=== PATIENT | male | born 1995 | race Caucasian/White ===

== ENCOUNTER 2017-08-07 03:34 | Emergency (ER) | payer BC ==
[2017-08-07] MEDS ORDERED: LIDOCAINE/EPINEPHR/TETRACAINE 5 ML BOTTLE TOPICAL ONE (03:44)
[2017-08-07] MEDS ORDERED: AMOXIC-POT CLAV 875MG STARTER 2 EACH TABLET PO STA (03:46)
[2017-08-07 03:50] VITALS: RESP 18
--- NOTE | 2017-08-07 04:05 | ED ---
Animal Bite HPI - General Chief Complaint: Animal Bite Stated Complaint: Dog bite/lip laceration Time Seen by Provider: 08/07/17 03:43 Source: patient, RN notes reviewed, old records reviewed Mode of arrival: ambulatory Limitations: no limitations - History of Present Illness Initial Comments: 22-year-old male presents to the emergency department she complained of lip laceration, he reports he was bit by his friends dog. Patient reports that the dog was a Labrador retriever, was playing an accident we came up on his face and bit him. Patient reports that his lip is split over the right upper lip.They reported the dog is up-to-date on all the taxis. Patient reports that his tetanus shot is up-to-date. Denies any allergies to medications. - Related Data Previous Rx's Medication Instructions Recorded Amoxic-Pot Clav 875-125Mg 1 tab PO Q12HR #20 tablet 08/07/17 [Augmentin 875-125] Allergies Allergy/AdvReac Type Severity Reaction Status Date / Time No Known Allergies Allergy Verified 08/07/17 03:50 Review of Systems ROS Statement: Those systems with pertinent positive or pertinent negative responses have been documented in the HPI. ROS Other: All systems not noted in ROS Statement are negative. Past Medical History Past Medical History: No Reported History History of Any Multi-Drug Resistant Organisms: None Reported Past Surgical History: Hernia Repair Past Psychological History: Depression Smoking Status: Never smoker Past Alcohol Use History: None Reported Past Drug Use History: None Reported General Exam - General Exam Comments Initial Comments: 22 year old male, no distress Limitations: no limitations General appearance: alert, in no apparent distress Head exam: Present: atraumatic, normocephalic, normal inspection Eye exam: Present: normal appearance, PERRL, EOMI. Absent: scleral icterus, conjunctival injection, periorbital swelling ENT exam: Present: normal exam, mucous membranes moist, other (2cm lip laceration over right upper lip through [place] border. ). Absent: normal oropharynx Neck exam: Present: normal inspection. Absent: tenderness, meningismus, lymphadenopathy Respiratory exam: Present: normal lung sounds bilaterally. Absent: respiratory distress, wheezes, rales, rhonchi, stridor Cardiovascular Exam: Present: regular rate, normal rhythm, normal heart sounds. Absent: systolic murmur, diastolic murmur, rubs, gallop, clicks GI/Abdominal exam: Present: soft, normal bowel sounds. Absent: distended, tenderness, guarding, rebound, rigid Extremities exam: Present: normal inspection, full ROM, normal capillary refill. Absent: tenderness, pedal edema, joint swelling, calf tenderness Back exam: Present: normal inspection Neurological exam: Present: alert, oriented X3, CN II-XII intact Psychiatric exam: Present: normal affect, normal mood Course Vital Signs 08/07/17 08/07/17 03:48 04:44 Temperature 97.2 F L 98 F Pulse Rate 82 78 Respiratory 18 18 Rate Blood Pressure 128/66 122/75 O2 Sat by Pulse 97 97 Oximetry Procedures - Laceration Laceration #1 Indication: laceration Site: lip (jose mig[place] border) Size (cm): 2 Description: linear Depth: simple, single layer Anesthetic Used: lidocaine 1% Anesthesia Technique: local infiltration (3) Pre-repair: wound explored, irrigated extensively Type of Sutures: nylon, vicryl Size of Sutures: 5-0, 6-0 Number of Sutures: 7 Technique: simple, interrupted Patient Tolerated Procedure: well, no complications Medical Decision Making - Medical Decision Making 22-year-old male presents to the laceration, he was bit by his friends dog. Through the [place] [employer] commercials approximately 2 cm, is not through and through. Patient one was irrigated with Saline and Betadine. Well approximated enclosed with approximately seven sutures. Discussed getting the surgery removing approximately seven days. Discussed monitoring for infection, I'll put the patient on Augmentin. Return parameters were discussed. Disposition Clinical Impression: Dog bite of vermil[place] of upper lip Disposition: HOME SELF-CARE Condition: Good Instructions: Animal Bite (ED) Additional Instructions: Please return to the emergency room in 7 days to have sutures removed. Please leave wound covered for the first 24-48 hours and then leave open to air after that time. Please use clean soap and water to clean the suture area to prevent scabbing over the top of your sutures. Please watch for any signs of infection which may include but not limited to increased pain, swelling, redness, fever or chills. Please return to the emergency room if any signs of infection do occur. Please return to the emergency room for any other concerns or complications. Prescriptions: Amoxic-Pot Clav 875-125Mg [Augmentin 875-125] 1 tab PO Q12HR #20 tablet Referrals: None,Stated [Primary Care Provider] - 1-2 days Lizbet Rivera MD [STAFF PHYSICIAN] - 1-2 days Time of Disposition: 04:04
[2017-08-07 04:44] VITALS: BP 122/75; PULSE 78; TEMP 98
== END 2017-08-07 04:44 | disposition home or self-care (01) ==
LOC: EC 03:34
DX: S01.511A Laceration without foreign body of lip, initial encounter (principal); W54.0XXA Bitten by dog, initial encounter
CPT/HCPCS: 40650; 99283